=== PATIENT | male | born 1995 | race Caucasian/White ===

== ENCOUNTER 2023-10-02 21:10 | Emergency (ER) | payer OTHER ==
[2023-10-02 21:19] VITALS: BP 119/68; PULSE 88; RESP 18; TEMP 97.9; BMI 25.7
[2023-10-02] MEDS ORDERED: ACETAMINOPHEN INJECTION 100 ML IVPB ONE (22:10)
[2023-10-02] MEDS: ACETAMINOPHEN 1000 MG/100 ML BAG IVPB ONE (22:11)
[2023-10-02 22:25] LABS: BASO % 0.3 % (0-2.0); EOS % 1.2 % (0-4.5); HEMATOCRIT 44.3 % (35.4-49); HEMOGLOBIN 15.3 GM/dL (11.7-16.9); LYMPH % 13.4 % (8-40); MCH 31.3 pg (25.7-33.7); MCHC 34.7 g/dl (32.0-35.9); MEAN CELL VOLUME 90.3 fl (80-96); MEAN PLT VOLUME 10.4 fl (7.5-11.1); MONO % 6.1 % (3.8-10.2); PLATELET COUNT 117 10^3/uL (134-434); RDW 13.5 % (11.9-15.9); WHITE BLOOD COUNT 11.7 K/mm3 (4.0-10.0)
[2023-10-02 22:36] LABS: POTASSIUM 4.1 mmol/L (3.5-5.1)
[2023-10-02 22:36] LABS: URINE APPEARANCE CLEAR; URINE BILIRUBIN 1+ (NEGATIVE); URINE COLOR DK YELLOW; URINE GLUCOSE (UA) NEGATIVE (NEGATIVE); URINE KETONE TRACE (NEGATIVE); URINE LEUK ESTERASE NEGATIVE (NEGATIVE); URINE NITRITE NEGATIVE (NEGATIVE); URINE PROTEIN TRACE (NEGATIVE)
[2023-10-02 22:38] LABS: CALCIUM 8.9 mg/dL (8.5-10.1)
[2023-10-02 22:39] LABS: ALBUMIN 3.9 g/dl (3.4-5.0); BLOOD UREA NITROGEN 14.2 mg/dL (7-18)
[2023-10-02 22:44] LABS: BILIRUBIN,TOTAL 0.6 mg/dL (0.2-1)
== END 2023-10-02 23:41 | disposition home or self-care (01) ==
LOC: JER 21:10
PROC: 3E030NZ Introduction of Analgesics, Hypnotics, Sedatives into Peripheral Vein, Open Approach (ICD-10-PCS; principal; 2023-10-02)
DX: N45.3 Epididymo-orchitis (principal); N50.811 Right testicular pain; R50.9 Fever, unspecified
CPT/HCPCS: 36415; 76870-TC; 80053; 81003; 85025; 87086; 99284-25; J0131